=== PATIENT | female | born 2000 | race African-American/Black ===

== ENCOUNTER 2025-09-30 18:53 | Emergency (ER) | payer BC ==
[~2025-09-30] VITALS: Ht 162.6 cm; Wt 79.4 kg
[2025-09-30 20:09] LABS: PLATELET COUNT (AUTO) 334 K/uL (150-450); RED BLOOD CELL COUNT(AUTO) 4.42 MIL/uL (4.0-5.2); RED CELL DISTRIBUTION WIDTH 14.0 % (11.5-15.0); WHITE BLOOD COUNT (AUTO) 11.2 K/uL (4.3-11.0)
[2025-09-30] MEDS ORDERED: ONDANSETRON HCL/PF 4 MG/2 ML VIAL ONE (20:10)
[2025-09-30] MEDS ORDERED: FAMOTIDINE/PF INJ 20 MG/2 ML VIAL IV ONE (20:10)
[2025-09-30] MEDS: FAMOTIDINE/PF INJ 20 MG/2 ML VIAL IV ONE (20:16)
[2025-09-30] MEDS: ONDANSETRON HCL/PF 4 MG/2 ML VIAL IVP ONE (20:16)
[2025-09-30] MEDS: IV NS 0.9% 1,000 ML BAG IV ONE (20:16)
[2025-09-30 20:22] LABS: CALCIUM, SERUM 8.7 mg/dL (8.5-10.1); CREATININE 0.9 mg/dL (0.6-1.3); SODIUM SERUM 138.0 mmol/L (136-145); UREA NITROGEN, BLOOD 10.0 mg/dL (7-18)
[2025-09-30 20:29] LABS: ASPARTATE AMINOTRANSFERASE 72.0 U/L (15-37); ASPARTATE AMINOTRANSFERASE 73.0 U/L (15-37); TOTAL PROTEIN, SERUM 8.0 g/dL (6.4-8.2)
[2025-09-30 20:43] LABS: APPEARANCE,URINE CLEAR (CLEAR); BLOOD, URINE NEGATIVE Ery/uL (NEGATIVE); LEUKOCYTE ESTERASE ,URINE NEGATIVE (NEGATIVE); NITRITE, URINE NEGATIVE (NEGATIVE); UGLUCOSE NEGATIVE (NEGATIVE)
[2025-09-30 20:50] LABS: PREGNANCY TEST URINE QUAL NEGATIVE (NEGATIVE)
[2025-09-30] MEDS ORDERED: MAG HYDROX/AL HYDROX/SIMETH 30 ML UDC ONE (21:30)
[2025-09-30] MEDS ORDERED: LIDOCAINE VISCOUS 2% UD 15 ML UDC ONE (21:30)
[2025-09-30] MEDS: MAG HYDROX/AL HYDROX/SIMETH 30 ML UDC PO ONE (21:32)
[2025-09-30] MEDS: LIDOCAINE VISCOUS 2% UD 15 ML UDC MM ONE (21:32)
[2025-09-30] MEDS ORDERED: ONDA4TAB5 PO (21:55)
[2025-09-30] MEDS ORDERED: FAMO-131 PO (21:55)
[2025-09-30 22:39] VITALS: BP 124/69; TEMP 97.5; O2SAT 99
== END 2025-09-30 22:39 | disposition home or self-care (01) ==
LOC: ER 18:57
DX: R19.7 Diarrhea, unspecified (principal); R11.0 Nausea; Z90.49 Acquired absence of other specified parts of digestive tract
CPT/HCPCS: 99285; 96374; 76705; 96361; 96375; 85025; 83690; 84703; 81003; 36415; 80053; 80076; J1308; J2405; J7030